=== PATIENT | male | born 1925 | race Caucasian/White ===

== ENCOUNTER 2016-04-27 12:34 | Emergency (ER) | payer OTHER ==
[~2016-04-27] VITALS: Ht 172.7 cm; Wt 72.6 kg
[~2016-04-27 12:34] MED LIST: C-500500 M1 PO; CALCIUM 500 +1 EAC5 PO; DAILY MULTIPLE1 EACH PO; ELIQUIS2.5 M1 PO; FERROUS SULFAT325 M3 PO; FOLIC ACID0.8 M1 PO; FOLIC ACID1 M1 PO; KEFLEX500 M1 PO; LASIX40 M1 PO; LOVASTATIN40 MG PO; OMEPRAZOLE20 MG PO; PRINIVIL10 M1 PO; SOTALOL HCL120 MG PO; WARFARIN SODIUM2 MG PO
--- NOTE | 2016-04-27 13:18 | ED MVC/FALL/TRAUMA COMPLAINT ---
History of Present Illness General Chief Complaint: Fall Stated Complaint: FALL X 2 ?DIZZINESS, LAC TO FOREHEAD Source: patient, family Exam Limitations: poor historian Allergies Coded Allergies: NO KNOWN ALLERGIES (09/05/10) Reconcile Medications Apixaban (Eliquis) 2.5 MG TABLET 1 TAB PO BID BLOOD THINNER (Reported) Ascorbic Acid (C-500) 500 MG TABLET 1 TAB PO QPM SUPPLEMENT (Reported) Calcium Carbonate/Vitamin D3 (Calcium 500 + D Tablet) 1 EACH TABLET 1 TAB PO BID VITAMIN SUPPORT (Reported) Ferrous Sulfate 325 MG (65 MG IRON) TABLET 1 TAB PO BID SUPPLEMENT (Reported) Folic Acid 0.8 MG CAPSULE 1 CAP PO DAILY SUPPLEMENT (Reported) Furosemide (Lasix) 40 MG TABLET 40 MG PO DAILY HEART FAILURE Lisinopril (Prinivil) 10 MG TABLET 1 TAB PO DAILY HIGH BLOOD PRESSURE ( Reported) Lovastatin 40 MG TABLET 1 TAB PO 1700 CHOLESTEROL (Reported) with food Multivitamin (Daily Multiple Vitamin) 1 EACH TABLET 1 TAB PO DAILY VITAMIN SUPPORT (Reported) Omeprazole 20 MG CAPSULE.DR 1 CAP PO DAILY GI (Reported) SOTALOL HCL (Sotalol) 120 MG TABLET 1 TAB PO BID HEART (Reported) Triage Note: PT TO ED WITH DAUGHTER S/P FALLING X 2 TODAY. PT NOTED WITH LAC TO RIGHT FOREHEAD AND ABRASION TO NECK. DENIES LOC. PT ON ELIQUIS FOR AFIB. RECENTLY STARTED ON LASIX FOR NEW DIAGNOSIS OF CHF. UNKNOWN LAST TETANUS SHOT. Triage Nurses Notes Reviewed? yes Onset: Abrupt Duration: hour(s):, constant, continues in ED Timing: recent history Severity: moderate, severe Injuries/Fall Location: face, chest Method of Injury: fall Loss of Consciousness: unsure HPI: 89-year-old male brought into emergency room for further evaluation after a mechanical fall that occurred in the bathroom. Apparently the patient was leaning over and then lost his balance and fell forward. Denies any chest pain shortness of breath dizziness prior to fall. Patient denies any pain currently. Patient reportedly had a headache earlier. Patient is on a eliquis for A. fib. No vomiting. Patient has not been sick recently with runny nose congestion and coughing. The only thing abnormal was that the patient did not take his medications yesterday morning as he usually does get he forgot. (JANKI REID) Vital Signs & Intake/Output Vital Signs & Intake/Output Vital Signs Date Time Temp Pulse Resp B/P Pulse O2 O2 Flow FiO2 Ox Delivery Rate 04/27 1540 97.1 70 18 100/62 97 Room Air 04/27 1352 Room Air Room Air 04/27 1242 96.6 94 20 107/67 97 Room Air Past History Travel History Traveled to [place] past 21 day No Medical History Any Pertinent Medical History? see below for history Neurological: Parkinson's disease EENT: allergies, blindness, hearing loss Cardiovascular: AFIB, CAD, hypertension, hyperlipidemia Gastrointestinal: GASTRIC CA 2004 Hepatic: NONE Renal: benign prost hyperplasia Musculoskeletal: osteoarthritis Psychiatric: NONE Endocrine: NONE Blood Disorders: anemia Cancer(s): GASTRIC CANCER STAGE 3 History of MRSA: No History of VRE: No History of CDIFF: No Pneumonia Vaccine: 02/28/16 Influenza Vaccine: 02/28/16 Surgical History Surgical History: TURP, GASTRIC CA REMOVAL Psychosocial History Who do you live with Spouse Services at Home None What is your primary language Citizen Of [place] Tobacco Use: Never used ETOH Use: denies use Illicit Drug Use: denies illicit drug use Family History Family History, If Any: SISTER FH: lung cancer BROTHER FH: prostate cancer Hx Contributory? No (JANKI REID) Review of Systems Review of Systems Constitutional: Reports: no symptoms. Eyes: Reports: no symptoms. Ears, Nose, Throat, Mouth: Reports: no symptoms. Respiratory: Reports: no symptoms. Cardiovascular: Reports: no symptoms. Gastrointestinal/Abdominal: Reports: no symptoms. Genitourinary: Reports: no symptoms. Musculoskeletal: Reports: see HPI. Skin: Reports: no symptoms. Neurological/Psychological: Reports: see HPI. All Other Systems: Reviewed and Negative (JANKI REID) Physical Exam Physical Exam General Appearance: alert, awake, mild distress Head: lacerations Eyes: Bilateral: normal appearance, PERRL, EOMI. Ears, Nose, Throat, Mouth: hearing grossly normal, moist mucous membrane Neck: normal inspection, supple, full range of motion Respiratory: normal breath sounds, no respiratory distress Cardiovascular: irregularly irregular Gastrointestinal: soft Back: normal inspection Extremities: normal range of motion Neurologic/Psych: awake, alert, oriented x 3, normal gait, normal mood/affect Skin: intact, normal color Core Measures ACS in differential dx? No Severe Sepsis Present: No Septic Shock Present: No (JANKI REID) Progress Differential Diagnosis: abd injury, C/T/L spine injury, ext injury, ICH, pelvis injury, pnemothorax, spinal cord injury Diagnostic Imaging: Viewed by Me: Radiology Read, CT Scan. Discussed w/RAD: Radiology Read, CT Scan. Radiology Impression: EXAM TYPE: CAT - CT HEAD WO IV CONTRAST EXAMINATION: CT HEAD WITHOUT CONTRAST CLINICAL INFORMATION: 89-year-old male with head trauma from fall. COMPARISON: CT of the head, 01/16/2016 TECHNIQUE: Contiguous axial imaging was performed from the skull base to vertex without intravenous administration of contrast. DLP: 529 mGy-cm. FINDINGS: There is atherosclerotic calcification of the cavernous carotid arteries. Again noted is patchy hypoattenuation of supratentorial white matter compatible with moderate microangiopathy. The anaya-white matter differentiation is maintained. There is no evidence of an acute major vascular territory infarction, intracranial hemorrhage, extra-axial fluid collection, focal mass effect or midline shift. The cerebral hemispheres are chronically atrophied, and there is associated symmetric prominence of the ventricles, sulci and cisterns. The calvarium is intact and the visualized paranasal sinuses, mastoid air cells and middle ear cavities are well aerated. The examined portions of the orbits, globes and temporomandibular joints are unremarkable. IMPRESSION: No acute intracranial pathology compared to 01/16/2016. DICTATED BY: KATERIN KIRBY MD DATE/TIME DICTATED:04/27/161320 BUCCARO:ZEINAB DATE/TIME TRANSCRIBED:1320, EXAM TYPE: RAD - XRY-PORTABLE CHEST XRAY EXAMINATION: XR PORTABLE CHEST CLINICAL INFORMATION: Fall COMPARISON: 03/26/2016 TECHNIQUE: Portable view of the chest was obtained. FINDINGS: No acute finding in the chest. Some chronic lung markings bases. No pneumothorax. No effusion. No obvious displaced fracture. Mediastinal contours are normal. No pneumothorax. IMPRESSION: No acute finding portable chest DICTATED BY: REAL GORDON MD DATE/TIME DICTATED:1317 BUCCARO:ZEINAB DATE/TIME TRANSCRIBED:04/27/161317 Initial ED EKG: rate (109), AFIB Comments: Patient seen by Dr. Byrd. Patient is at his normal baseline of function. Follow-up with primary care doctor. Return if any other concerns.nontoxic appearing and in NAD. (GUILLERMINA SANCHEZ,JANKI) Plan of Care: Orders Procedure Date/time Status Regular Diet 04/27 D Active URINALYSIS 04/27 1301 Complete TROPONIN LEVEL 04/27 1301 Complete COMPREHENSIVE METABOLIC PANEL 04/27 1301 Complete CBC WITHOUT DIFFERENTIAL 04/27 1301 Complete EKG 04/27 1248 Active Laboratory Tests 04/27/16 1509: Urine Color STRAW, Urine Clarity CLEAR, Urine pH 6.0, Ur Specific [place] 1.010, Urine Protein NEG, Urine Ketones NEG, Urine Nitrite NEG, Urine Bilirubin NEG, Urine Urobilinogen 0.2, Ur Leukocyte Esterase NEG, Ur Microscopic EXAM NOT REQUIRED, Urine Hemoglobin NEG, Urine Glucose NEG 04/27/16 1322: Anion Gap 16, Estimated GFR 44 L, BUN/Creatinine Ratio 34.0 H, Glucose 96, Calcium 9.7, Total Bilirubin 0.8, AST 27, ALT 34, Alkaline Phosphatase 62, Troponin I 0.01, Total Protein 7.1, Albumin 4.1, Globulin 3.0, Albumin/Globulin Ratio 1.4, CBC w Diff NO MAN DIFF REQ, RBC 3.95 L, MCV 95.2 H, MCH 32.3 H, RDW 13.2, MPV 9.7, Gran % 63.4, Lymphocytes % 24.8, Monocytes % 9.1, Eosinophils % 2.3, Basophils % 0.4, Absolute Granulocytes 5.0, Absolute Lymphocytes 2.0, Absolute Monocytes 0.7 H, Absolute Eosinophils 0.2, Absolute Basophils 0, PUBS MCHC 33.9 Departure Departure Disposition: STILL A PATIENT Condition: Stable Clinical Impression Primary Impression: Head injury Secondary Impressions: Facial laceration Referrals: Olvin GALVAN MD (PCP/Family) Additional Instructions: Follow-up with your primary care doctor. Return to the emergency room immediately if any other concerns worsening symptoms. Please go over all results of today's visit with your primary care doctor. Contact your primary care doctor to let them know you were here in the emergency room. There may be nonspecific findings which may not be related to your visit today here in the emergency room but may require further evaluation and chronic monitoring by your primary care doctor. If you had a laceration today the chance of foreign body always remains. You should follow-up with your primary care doctor for recheck in 3-5 days for a wound check. If you had an x-ray done there is a chance that a fracture could have been missed on initial read and you should follow-up with your primary care doctor for repeat x-rays if symptoms persist. If your blood pressure was elevated here in the emergency room please have rechecked by her primary care doctor within the next 48 hours by your primary care doctor. If you were prescribed a narcotic here in the emergency room or any type of controlled substances you're not allowed to drive while taking this medication or operate any type of heavy machinery. Narcotics can make you feel lightheaded dizziness nausea and can cause constipation. You may need to pickle pumper a stool softener. Thank you for choosing [facility] emergency room. Please return to the emergency room immediately if you have any other concerns worsening of symptoms. Departure Forms: Customer Survey General Discharge Information (JANKI REID) PA/ANODE WORKER Co-Sign Statement Statement: ED Attending supervision documentation- [x] I saw and evaluated the patient. I have also reviewed all the pertinent lab results and diagnostic results. I agree with the findings and the plan of care as documented in the PA's/ANODE WORKER's documentation. [] I have reviewed the ED Record and agree with the PA's/ANODE WORKER's documentation. [] Additions or exceptions (if any) to the PAs/ANODE WORKER's note and plan are summarized below: [] (BRICE DIAMOND,REAL Cummins) Procedures Laceration/Wound Repair Laceration/Wound Repair: Wound Location: face Wound's Depth, Shape: irregular Wound Length (cm): 2 Wound Explored: irrigated extensively Wound Repaired With: Dermabond Sterile Dressing Applied: Yes Tetanus Status: not up to date (JANKI REID)
--- NOTE | 2016-04-27 13:22 | RADIOLOGY REPORT ---
EXAMINATION: XR PORTABLE CHEST CLINICAL INFORMATION: Fall COMPARISON: 03/26/2016 TECHNIQUE: Portable view of the chest was obtained. FINDINGS: No acute finding in the chest. Some chronic lung markings bases. No pneumothorax. No effusion. No obvious displaced fracture. Mediastinal contours are normal. No pneumothorax. IMPRESSION: No acute finding portable chest
--- NOTE | 2016-04-27 13:29 | CT SCAN REPORT ---
EXAMINATION: CT HEAD WITHOUT CONTRAST CLINICAL INFORMATION: 89-year-old male with head trauma from fall. COMPARISON: CT of the head, 01/16/2016 TECHNIQUE: Contiguous axial imaging was performed from the skull base to vertex without intravenous administration of contrast. DLP: 529 mGy-cm. FINDINGS: There is atherosclerotic calcification of the cavernous carotid arteries. Again noted is patchy hypoattenuation of supratentorial white matter compatible with moderate microangiopathy. The anaya-white matter differentiation is maintained. There is no evidence of an acute major vascular territory infarction, intracranial hemorrhage, extra-axial fluid collection, focal mass effect or midline shift. The cerebral hemispheres are chronically atrophied, and there is associated symmetric prominence of the ventricles, sulci and cisterns. The calvarium is intact and the visualized paranasal sinuses, mastoid air cells and middle ear cavities are well aerated. The examined portions of the orbits, globes and temporomandibular joints are unremarkable. IMPRESSION: No acute intracranial pathology compared to 01/16/2016.
[2016-04-27 13:35] LABS: ABSOLUTE BASOPHIL COUNT 0 /CUMM (0.0-0.2); ABSOLUTE EOSINOPHIL COUNT 0.2 /CUMM (0.0-0.7); ABSOLUTE MONOCYTE COUNT 0.7 /CUMM (0.10-0.60); BASOPHIL % 0.4 % (0.0-2.0); EOSINOPHIL % 2.3 % (0-5); GRANULOCYTE % 63.4 % (42.2-75.2); HEMATOCRIT 37.6 % (42-52); MEAN CORPUSCULAR HGB 32.3 PG (27.0-31.0); MEAN CORPUSCULAR HGB CONC 33.9 G/DL (33.0-37.0); MEAN CORPUSCULAR VOLUME 95.2 FL (80.0-94.0); MEAN PLATELET VOLUME 9.7 FL (7.4-10.4); PLATELET COUNT 165 /CUMM (130-400); RBC DISTRIBUTION WIDTH 13.2 % (11.5-14.5); RED BLOOD CELL CT 3.95 /CUMM (4.70-6.10); WHITE BLOOD CELL COUNT 7.9 /CUMM (4.8-10.8)
[2016-04-27 15:40] VITALS: BP 100/62
[2016-08-31] MEDS ORDERED: METOPROLOL TART25 M1 PO (10:52)
[2016-08-31] MEDS ORDERED: SYNTHROID25 MCG PO (11:18)
== END 2016-04-27 15:42 ==
LOC: ERH 12:34
PROVIDERS: Physician Assistant Medical
DX: S09.90XA Unspecified injury of head, initial encounter (principal); S01.81XA Laceration without foreign body of other part of head, initial encounter; W19.XXXA Unspecified fall, initial encounter
CPT/HCPCS: 81003; 90471; 90714; 93005; 93010

== ENCOUNTER 2016-04-27 19:43 | Inpatient (IN) | payer OTHER ==
[~2016-04-27] VITALS: Ht 172.7 cm; Wt 70.8 kg
--- NOTE | 2016-04-27 20:12 | ED SYNCOPE COMPLAINT ---
History of Present Illness General Chief Complaint: General Adult Stated Complaint: WEAKNESS Source: patient, old records Exam Limitations: no limitations Vital Signs & Intake/Output Vital Signs & Intake/Output Vital Signs Date Time Temp Pulse Resp B/P Pulse O2 O2 Flow FiO2 Ox Delivery Rate 04/27 2008 98.3 106 16 112/70 98 Room Air Room Air Allergies Coded Allergies: NO KNOWN ALLERGIES (09/05/10) Reconcile Medications Apixaban (Eliquis) 2.5 MG TABLET 1 TAB PO BID BLOOD THINNER (Reported) Ascorbic Acid (C-500) 500 MG TABLET 1 TAB PO QPM SUPPLEMENT (Reported) Calcium Carbonate/Vitamin D3 (Calcium 500 + D Tablet) 1 EACH TABLET 1 TAB PO BID VITAMIN SUPPORT (Reported) Ferrous Sulfate 325 MG (65 MG IRON) TABLET 1 TAB PO BID SUPPLEMENT (Reported) Folic Acid 0.8 MG CAPSULE 1 CAP PO DAILY SUPPLEMENT (Reported) Furosemide (Lasix) 40 MG TABLET 40 MG PO DAILY HEART FAILURE Lisinopril (Prinivil) 10 MG TABLET 1 TAB PO DAILY HIGH BLOOD PRESSURE ( Reported) Lovastatin 40 MG TABLET 1 TAB PO 1700 CHOLESTEROL (Reported) with food Multivitamin (Daily Multiple Vitamin) 1 EACH TABLET 1 TAB PO DAILY VITAMIN SUPPORT (Reported) Omeprazole 20 MG CAPSULE.DR 1 CAP PO DAILY GI (Reported) SOTALOL HCL (Sotalol) 120 MG TABLET 1 TAB PO BID HEART (Reported) Triage Nurses Notes Reviewed? yes Timing: recent history Loss of Consciousness: no loss of consciousness HPI: 89-year-old male brought back in for further evaluation after having 2 near syncopal episodes. Patient was leaning forward and almost lost consciousness. Patient was not responding completely. There was no recent falls. Denies any chest pain shortness of breath. Patient has been increasingly unsteady. (JANKI REID) Past History Travel History Traveled to [place] past 21 day No Medical History Any Pertinent Medical History? see below for history Neurological: Parkinson's disease EENT: allergies, blindness, hearing loss Cardiovascular: AFIB, CAD, hypertension, hyperlipidemia Gastrointestinal: GASTRIC CA 2005 Hepatic: NONE Renal: benign prost hyperplasia Musculoskeletal: osteoarthritis Psychiatric: NONE Endocrine: NONE Blood Disorders: anemia Cancer(s): GASTRIC CANCER STAGE 3 History of MRSA: No History of VRE: No History of CDIFF: No Tetanus Vaccine: 04/27/16 Surgical History Surgical History: TURP, GASTRIC CA REMOVAL Psychosocial History Who do you live with Spouse Services at Home None What is your primary language [place] Family History Family History, If Any: SISTER FH: lung cancer BROTHER FH: prostate cancer Hx Contributory? No (JANKI REID) Review of Systems Review of Systems Constitutional: Reports: no symptoms. EENTM: Reports: no symptoms. Respiratory: Reports: no symptoms. Cardiovascular: Reports: see HPI. GI: Reports: no symptoms. Genitourinary: Reports: no symptoms. Musculoskeletal: Reports: no symptoms. Skin: Reports: no symptoms. Neurological/Psychological: Reports: see HPI. All Other Systems: Reviewed and Negative (JANKI REID) Physical Exam Physical Exam General Appearance: well developed/nourished, mild distress Head: atraumatic Eyes: Bilateral: normal appearance, EOMI. Ears, Nose, Throat: normal pharynx, normal ENT inspection Neck: normal inspection, full range of motion Respiratory: normal breath sounds, no respiratory distress Cardiovascular: irregularly irregular Back: normal inspection Extremities: normal inspection, normal range of motion Psychiatric: awake, alert, oriented x 3 Cranial Nerves: normal hearing, normal speech, PERRL Motor/Sensory: no motor/sensory deficits Skin: intact Core Measures ACS in differential dx? Yes CVA/TIA Diagnosis: No Severe Sepsis Present: No Septic Shock Present: No (JANKI REID) Progress Differential Diagnosis: AMI, aortic dissection, aortic valve, drug induced syncope, hyperventilation, orthostatic syncope, other valvular disease, pacemaker malfunction, pericardial tamponade, pulmonary embolus, seizure, sick sinus syndrome, subarachnoid hem., TIA/CVA, vasodepressor syncope, ventricular tach/fib Plan of Care: Orders Procedure Date/time Status Nothing by Mouth 04/28 B Active Patient Data 04/27 2134 Active Saline Lock 04/27 2124 Active Misc Message 04/27 2124 Active ED Holding Orders 04/27 2124 Active Vital Signs 04/27 2124 Active Code Status 04/[address] in observation 04/27 2123 Active Telemetry/Candle Maker 04/27 2006 Active TROPONIN LEVEL 04/27 2006 Active CBC WITHOUT DIFFERENTIAL 04/27 2006 Active BASIC METABOLIC PANEL 04/27 2006 Active EKG 04/27 2006 Active Initial ED EKG: rate (106), AFIB Prior EKG: unchanged (JANKI REID) Departure Departure Disposition: STILL A PATIENT Condition: Stable Clinical Impression Primary Impression: Near syncope Secondary Impressions: Unsteady gait Referrals: COLE DIAMOND,Olvin MULLINS (PCP/Family) Departure Forms: Customer Survey General Discharge Information Observation Note Spoke With: HOLLIS DIAMOND,VALERIA Physician Advisor Notified: KENN DIAMOND,YESENIA [facility] Place Patient In: Non-ED OBS Care Area Rationale for Observation: My rational for observation is as follows . Patient is unsteady. Patient unable to ambulate. Near-syncope. Patient will require cardiac telemetry. Cardiac consultation. Serial troponins. PT consultation. Patient was here earlier and discharged and failed outpatient treatment. (JANKI REID) PA/COMMERCIAL LITIGATION ATTORNEY Co-Sign Statement Statement: ED Attending supervision documentation- [x] I saw and evaluated the patient. I have also reviewed all the pertinent lab results and diagnostic results. I agree with the findings and the plan of care as documented in the PA's/COMMERCIAL LITIGATION ATTORNEY's documentation. pt signed out to me... pt to be placed in obs for syncope evaluation... discussed with dr. trent. [] I have reviewed the ED Record and agree with the PA's/COMMERCIAL LITIGATION ATTORNEY's documentation. [] Additions or exceptions (if any) to the PAs/COMMERCIAL LITIGATION ATTORNEY's note and plan are summarized below: [] (ALEJO DIAMOND,MARYSOL Birch)
--- NOTE | 2016-04-27 21:51 | History & Physical ---
[facility]Y [facility] 04/27/16 2058: General Information and HPI History of Present Illness: Mr. Boogie is a 89-year-old gentleman with a past medical history of atrial fibrillation on Eliquis, Parkinson's disease, hypertension, hyperlipidemia, gastric carcinoma status post chemotherapy and resection in 2004, osteoarthritis , hearing difficulty, and legal blindness who presents with complaints of near syncopy. Of note, patient was seen today in the morning for evaluation of what was believed to be a mechanical fall, after patient had tripped in the bathroom and hit his head. CT of the head obtain of the time was unremarkable, and was discharged home. He now presents in the evening time after what his daughter states to have been episodes of near fainting. Patient was standing up when he was noticed by his family members that he was bending forward and holding rails. His daughter who is an RN, decided to help him and make him sit down on a chair. Few minutes after, that patient stood up and immediately started bending forward in a motion of possible fall, his daughter held him and put him back on the chair. He was noted to be pale, and BP measured at that time was around 98 systolic. Patient was not reported to have had any confusion after the episode, no bowel or urinary incontinence, no seizure like activities, speech impairment, facial drooping or any focal neurological deficit. She also denies any chest pain, palpitation, vertigo, or tinnitus. Of note patient at baseline ambulates freely without any use of walking aid, he is physically physically active and swims every Saturday and Saturday. Allergies/Medications Allergies: Coded Allergies: NO KNOWN ALLERGIES (09/05/10) Home Med list Apixaban (Eliquis) 2.5 MG TABLET 1 TAB PO BID BLOOD THINNER (Reported) Ascorbic Acid (C-500) 500 MG TABLET 1 TAB PO QPM SUPPLEMENT (Reported) Calcium Carbonate/Vitamin D3 (Calcium 500 + D Tablet) 1 EACH TABLET 1 TAB PO BID VITAMIN SUPPORT (Reported) Ferrous Sulfate 325 MG (65 MG IRON) TABLET 1 TAB PO BID SUPPLEMENT (Reported) Folic Acid 0.8 MG CAPSULE 1 CAP PO DAILY SUPPLEMENT (Reported) Furosemide (Lasix) 40 MG TABLET 40 MG PO DAILY HEART FAILURE Lisinopril (Prinivil) 10 MG TABLET 1 TAB PO DAILY HIGH BLOOD PRESSURE ( Reported) Lovastatin 40 MG TABLET 1 TAB PO 1700 CHOLESTEROL (Reported) with food Multivitamin (Daily Multiple Vitamin) 1 EACH TABLET 1 TAB PO DAILY VITAMIN SUPPORT (Reported) Omeprazole 20 MG CAPSULE. 1 CAP PO DAILY GI (Reported) SOTALOL HCL (Sotalol) 120 MG TABLET 1 TAB PO BID HEART (Reported) Past History Travel History Traveled to [place] past 21 day No Medical History Neurological: Parkinson's disease EENT: allergies, blindness, hearing loss Cardiovascular: AFIB, CAD, hypertension, hyperlipidemia Gastrointestinal: GASTRIC CA 2005 Hepatic: NONE Renal: benign prost hyperplasia Musculoskeletal: osteoarthritis Psychiatric: NONE Endocrine: NONE Blood Disorders: anemia Cancer(s): GASTRIC CANCER STAGE 3 History of MRSA: No History of VRE: No History of CDIFF: No Tetanus Vaccine: 04/27/16 Surgical History Surgical History: TURP, GASTRIC CA REMOVAL Past Family/Social History Family History Relations & Conditions if any SISTER FH: lung cancer BROTHER FH: prostate cancer Psychosocial History Who Do You Live With? child Services at Home: None Primary Language: Japanese Functional Ability ADLs Independent: eating, toileting. Needs Assist: dressing, bathing. Ambulation: independent, sways and walks with the help of feeling the furniture at home, but never fell down, he requires assistance outside his home. IADLs Needs Assist: shopping, housework, finances, food prep, telephone, transportation, medication admin. Review of Systems Review of Systems Constitutional: Denies: chills, diaphoresis, fever, malaise. EENTM: Denies: blurred vision, visual changes, eye pain. Cardiovascular: Denies: chest pain, palpitations. Respiratory: Denies: cough, hemoptysis, orthopnea, short of breath. GI: Denies: bloating, constipation, diarrhea. Genitourinary: Denies: dysuria, frequency, hematuria, hesitation. Musculoskeletal: Denies: gout, joint pain, joint swelling. Skin: Denies: dryness, erythema, jaundice. Neurological/Psychological: Denies: cognitive dysfunction, confusion, depressed, dementia, emotional problems. Hematologic/Endocrine: Reports: no symptoms. Exam & Diagnostic Data Last 24 Hrs of Vital Signs/I&O Vital Signs Date Time Temp Pulse Resp B/P Pulse O2 O2 Flow FiO2 Ox Delivery Rate 04/27 2357 97.2 112 20 108/64 04/27 2155 97.1 98 20 90/52 100 Room Air 04/27 2008 98.3 106 16 112/70 98 Room Air Room Air Intake & Output 04/28 0800 04/28 0000 04/27 1600 Intake Total 0 Output Total Balance 0 Intake, Oral 0 Physical Exam General Appearance Alert, Oriented X3, Cooperative, No Acute Distress Skin No Significant Lesion HEENT PERRLA, Mucous Membr. moist/pink, laceration on right side of forehead. Neck Supple, No JVD, No thryomegaly, +2 Carotid Pulse wo Bruit Lymphatic Cervical nl Cardiovascular Regular Rate, Normal S1, Normal S2 Lungs Clear to Auscultation, Normal Air Movement Abdomen Normal Bowel Sounds, Soft, No Tenderness Neurological Normal Gait, Normal Speech, Strength at 5/5 X4 Ext, Normal Tone, Sensation Intact Extremities No Clubbing, No Cyanosis, No Edema, Normal Pulses, No Tenderness/ Swelling Vascular Normal Pulses Assessment/Plan Assessment: To 89-year-old male with a past medical history of A. fib, osteoarthritis, Parkinson's disease, hypertension, HFPref, presents for evaluation of episodes of near syncope. Impression * Pre-Syncope. Possibly secondary to orthostatic hypotension. seizures, neurological, cardiac etiology less likely. * GABBY. Possibly prerenal from hypovolemia. * Anion gap metabolic acidosis. Possible of renal etiology. * History of A. fib Plan * Will admit to telemetry close cardiac monitoring * Will begin hydration at 100 mls per hour * Echo in the morning * Will hold off furosemide * Will continue sotalol * Orthostatics * PT consult As Ranked By This Provider Problem List: 1. Pre-syncope 2. GABBY (acute kidney injury) Core Measures/Miscellaneous Acute Coronary Syndrome ACS Diagnosis: No Cerebrovascular Accident CVA/TIA Diagnosis: No Congestive Heart Failure CHF Diagnosis: No Venous Thromboembolism VTE Risk Factors: Acute medical illness, Age > 40 VTE Prophylaxis Ordered Inpt: Pharm- Eliquis [facility] prophylaxis d/t: No contraindications No VTE Pharm Prophylaxis d/t: No contraindications VTE Diagnosis: No VTE Type: NONE VTE Confirmed by (Test): NONE Severe Sepsis Severe Sepsis Present: No Septic Shock Septic Shock Present: No Miscellaneous Documentation Attending Case Discussed With: VALERIA SHAFER MD Primary Care Physician: Olvin GALVAN MD Patient sees these Specialists credit control officer Level of Patient Care: Telemetry NICK CORREIA MD 04/27/16 2243: Resident Review Statement Resident Statement: examined this patient, discussed with manufacturing engineering intern, agreed with manufacturing engineering intern, discussed with family, reviewed EMR data (avail), discussed with nursing , discussed with case mgmt, reviewed images, amended to note Other Findings: Rajeev is an 89-year-old man with a medical history of coronary artery disease atrial fibrillation on anticoagulation heart failure with preserved ejection fraction hypertension pericardial effusion recent history of fall (negative CAT scan), recent admission to [facility] in March 2016 with acute congestive heart failure, gastric cancer status post chemotherapy and resection 2004, Parkinson's disease, osteoarthritis, subclinical hypothyroidism, acute kidney injury secondary to loop diuretics, BPH, anemia (? Iron deficiency) hard of hearing and legally blind now presents with 2 episodes of near syncope, increasing gait unsteadiness. He is afebrile, heart rate is 98-106 bpm, blood pressure was initially 90/52, however upon recheck was 112/70. He is 100% on room air. CBC is unremarkable. Creatinine is elevated at 1.8, at baseline he is normal. Anion gap of 18 noted. First set of troponin and EKG negative. Echocardiogram from March 2016 demonstrates an ejection fraction of 70%. CAT scan of the head did not show any acute intracranial pathology. Suspect he has been overdiuresed with furosemide leading to GABBY, and episodes of near syncope secondary to volume depletion. Laceration to head w/o IC bleed. Stable Afib with CHADSVASC 4. - Problems - Pre-syncope Dehydration Pre-renal acute renal failure Head injury with laceration Afib - Plan - Telemetry Check orthostat VS Urinalysis Urine lytes/FeNa NS 1L @ 100cc/hr x 1 Repeat BMP in AM Hold lasix, JEFFREY-i Continue sotalol,statin Neurochecks q4 PT/OT eval DVT ppx - on eliquis FULL HOLLIS,AARTEE 04/28/16 0632: Attending MD Review Statement Attending Statement Attending MD Statement: examined this patient, discuss w/resident/PA/BACK SEWER, agreed w/resident/PA/BACK SEWER, discussed with family, reviewed EMR data (avail), reviewed images, amended to note Attending Assessment/Plan: CC: Presyncope and fall PMH Hx: CAD, A. fib on Eliquis, HFp EF, HTN, history of pericardial effusion, history of falls January 2016, history of gastric cancer status post resection and chemotherapy, BPH Patient was earlier in the ER today for mechanical fall, patient was discharged home. Patient had 2 episodes of presyncope, first daughter saw him slumped and confused, second episode he almost passed out. He appeared more confused in these 2 episodes so daughter brought him back. Patient was recently admitted and was treated for newly diagnosed heart failure currently on Lasix. Vitals: Afebrile, pulse 106, RR 20, blood pressure 112/70, saturating well on room air. On examination: A O 3, anxious, no distress. Hard of hearing. Mucosa dry, no JVD, no lymphadenopathy, neck supple CVS: S1-S2, RRR. RS: Clear to auscultate. Abdomen: Soft, NT, ND, bowel sounds present. No focal neurological deficit. No dependent edema. He has some laceration on forehead, chest, uninfected. Labs: Hemoglobin 12.4, bicarbonate 20, anion gap 18, creatinine 1.8, troponin 0.02 Chest x-ray done on April 27 shows no acute changes. CT head done on April 27 shows no evidence of intracranial pathology. A and P #1 presyncope: Patient is admitted in observation telemetry for presyncopal workup, which appears to be more secondary to volume contraction at this time. Continue telemetry monitoring, orthostatic vitals in a.m., gentle hydration, check UA, hold Lasix, hold JEFFREY inhibitor, OT PT evaluation, cardiology consult, 2-D echo if suggested by cardiology. Recent echocardiogram doesn't show any evidence of valvular disease, but ejection fraction 70%. Patient may benefit from MRI and neurologic consult for gait instability. #2 acute kidney injury: Patient's creatinine gradually increased from 1.2-1.8. Probably secondary to volume contraction. Continue gentle hydration. #3 anion gap acidosis: Probably secondary to acute kidney injury, no possible source of infection at this point. Check lactic acid is not improving, on repeat labs. Continue gentle hydration. Repeat BEP and LFTs in a.m. #4 continue anticoagulation and sotalol. Adequate pain control.
[2016-04-27 21:55] LABS: ABSOLUTE BASOPHIL COUNT 0 /CUMM (0.0-0.2); ABSOLUTE EOSINOPHIL COUNT 0.1 /CUMM (0.0-0.7); ABSOLUTE GRANULOCYTE CT 6.9 /CUMM (1.4-6.5); ABSOLUTE LYMPH COUNT 1.9 /CUMM (1.2-3.4); ABSOLUTE MONOCYTE COUNT 0.7 /CUMM (0.10-0.60); BASOPHIL % 0.5 % (0.0-2.0); EOSINOPHIL % 0.8 % (0-5); GRANULOCYTE % 71.4 % (42.2-75.2); HEMATOCRIT 36.6 % (42-52); MEAN CORPUSCULAR HGB 32.5 PG (27.0-31.0); MEAN CORPUSCULAR VOLUME 95.5 FL (80.0-94.0); MEAN PLATELET VOLUME 9.8 FL (7.4-10.4); PLATELET COUNT 156 /CUMM (130-400); RBC DISTRIBUTION WIDTH 13.5 % (11.5-14.5); RED BLOOD CELL CT 3.83 /CUMM (4.70-6.10); WHITE BLOOD CELL COUNT 9.6 /CUMM (4.8-10.8)
[2016-04-27 23:57] VITALS: BP 108/64
--- NOTE | 2016-04-28 06:41 | PN- Housestaff ---
BREN DIAMOND,NICK 04/28/16 0640: Subjective Follow-up For: Presyncope GABBY AG Acidosis Subjective: Doing well. No overnight events. No complaints this am. Review of Systems Constitutional: Denies: see HPI. Objective Last 24 Hrs of Vital Signs/I&O Vital Signs Date Time Temp Pulse Resp B/P Pulse O2 O2 Flow FiO2 Ox Delivery Rate 04/27 2357 97.2 112 20 108/64 98 Room Air 04/275 97.1 98 20 90/52 100 Room Air 04/27 2008 98.3 106 16 112/70 98 Room Air Room Air Intake & Output 04/28 0800 04/28 0000 04/27 1600 Intake Total 0 Output Total Balance 0 Intake, Oral 0 Patient 156 lb Weight Physical Exam General Appearance: Alert, Oriented X3, Cooperative Other Physical Findings: Skin No Significant Lesion HEENT PERRLA, Mucous Membr. moist/pink, laceration on right side of forehead. Neck Supple, No JVD, No thryomegaly, +2 Carotid Pulse wo Bruit Lymphatic Cervical nl Cardiovascular Regular Rate, Normal S1, Normal S2 Lungs Clear to Auscultation, Normal Air Movement Abdomen Normal Bowel Sounds, Soft, No Tenderness Neurological Normal Gait, Normal Speech, Strength at 5/5 X4 Ext, Normal Tone, Sensation Intact Extremities No Clubbing, No Cyanosis, No Edema, Normal Pulses, No Tenderness/ Swelling Vascular Normal Pulses Current Medications: Current Medications Sig/Maximiliano Start time Last Medication Dose Route Stop Time Status Admin Acetaminophen 650 MG Q6P PRN 04/270 AC PO Acetaminophen/ 1 TAB Q6P PRN 04/27 2229 AC Hydrocodone Bitart PO Apixaban 2.5 MG BID 04/28 1000 AC PO Atorvastatin Calcium 10 MG 1700 04/28 1700 AC PO Diphenhydramine HCl 25 MG Q6P PRN 04/27 2230 AC PO Docusate Sodium 100 MG BID 04/28 1000 AC PO Ferrous Sulfate 325 MG BID 04/28 1000 AC PO Folic Acid 1 MG DAILY 04/28 1000 AC PO Hydromorphone HCl 0.5 MG Q4P PRN 04/27 2230 AC IV Omeprazole 20 MG DAILY AC 04/28 0700 AC 04/28 PO 0620 Polyethylene Glycol 17 GM AT BEDTIME 04/28 2200 AC PO Prochlorperazine 10 MG Q6P PRN 04/27 2230 AC IV Senna/Docusate Sodium 1 TAB AT BEDTIME 04/28 2200 AC PO Sodium Chloride 1,000 ML Q10H 04/27 2245 AC 04/27 IV 04/28 0844 2312 Sotalol HCl 120 MG BID 04/28 1000 AC PO Last 24 Hrs of Lab/Lb Results Last 24 Hrs of Labs/Mics: Laboratory Tests 04/27/163: Anion Gap 18 H, Estimated GFR 36 L, BUN/Creatinine Ratio 35.0 H, Glucose 124 H, Calcium 9.6, Troponin I 0.02, CBC w Diff NO MAN DIFF REQ, RBC 3.83 L, MCV 95.5 H, MCH 32.5 H, RDW 13.5, MPV 9.8, Gran % 71.4, Lymphocytes % 20.2 L, Monocytes % 7.1, Eosinophils % 0.8, Basophils % 0.5, Absolute Granulocytes 6.9 H, Absolute Lymphocytes 1.9, Absolute Monocytes 0.7 H, Absolute Eosinophils 0.1 , Absolute Basophils 0, PUBS MCHC 34.0 Assessment/Plan Assessment: Rajeev is an 89-year-old man with a medical history of coronary artery disease atrial fibrillation on anticoagulation heart failure with preserved ejection fraction hypertension pericardial effusion recent history of fall (negative CAT scan), recent admission to [facility] in March 2016 with acute congestive heart failure, gastric cancer status post chemotherapy and resection 2004, Parkinson's disease, osteoarthritis, subclinical hypothyroidism, acute kidney injury secondary to loop diuretics, BPH, anemia (? Iron deficiency) hard of hearing and legally blind now presents with 2 episodes of near syncope, increasing gait unsteadiness. Suspect he has been overdiuresed with furosemide leading to GABBY, and episodes of near syncope secondary to volume depletion. Laceration to head w/o IC bleed. Stable Afib with CHADSVASC 4. - Problems - Pre-syncope Dehydration Pre-renal acute renal failure AG acidosis Head injury with laceration Afib - Plan - Await Labs Urinalysis Urine lytes/FeNa Hold lasix, JEFFREY-i Continue sotalol,statin Neurochecks q4 PT/OT eval DC pending above DVT ppx - on eliquis FULL Problem List: 1. Pre-syncope Pain Ratin Pain Location: /A Pain Goal: Pain 7 or less Pain Plan: N/A Tomorrow's Labs & Rationales: N/A RAJAT DIAMOND,JACQUELINE 04/28/16 1618: Attending MD Review Statement Attending Statement Attending MD Statement: examined this patient, discuss w/resident/PA/MAINTENANCE SERVICE TECHNICIAN, agreed w/resident/PA/MAINTENANCE SERVICE TECHNICIAN, reviewed EMR data (avail) Attending Assessment/Plan: 89M PMH CADCarol. fib on Eliquis, HFp EF, HTN, history of pericardial effusion, history of falls January 2016, history of gastric cancer status post resection and chemotherapy, BPH admitted for multiple episodes of pre-syncope, found to be hypotensive on admission. Recently started on Lasix, appears dehydrated with GABBY, no infectious signs. Remains hypotensive despite 500mL normal saline bolus , 80/46. Plan - Give additional 500mL normal saline bolus, if still hypotensive, give another 500 mL - Continue normal saline at 75mL/hr - Monitor renal function - Obtain cardiology consult - Monitor telemetry - Check morning cortisol level - Check TSH - Continue home medications, avoid anti-hypertensives - DVT PPx
[2016-04-28 08:37] VITALS: BP 86/48
[2016-04-28 09:10] VITALS: BP 98/50
[2016-04-28 12:00] VITALS: BP 80/42
[2016-04-28 12:57] VITALS: BP 84/40
[2016-04-28 16:12] VITALS: BP 108/58
--- NOTE | 2016-04-28 18:16 | Cons- Cardiology ---
General Information and HPI Consulting Request Date of Consult: 04/28/16 Requested By: VALERIA SHAFER MD Reason for Consult: Suspected syncopal episode. Source of Information: patient, family, old records Exam Limitations: dementia History of Present Illness: Mr. Rajeev Boogie is an 89-year-old male with a history of hypertension, dyslipidemia, paroxysmal atrial fibrillation on antiarrhythmic ( sotalol) and anticoagulation (apixaban) therapy, who presented to the ED twice yesterday first following an unwitnessed suspected mechanical fall for which she was discharged to home and who returned following a witnessed near syncopal episode. He is a poor historian, but denies any recent chest discomfort, palpitations, shortness of breath, lower extremity edema, paroxysmal nocturnal dyspnea, orthopnea, etc. He was last hospitalized at (03/23-03/28/2016) for complaints of shortness of breath felt secondary to heart failure with preserved systolic function that responded well to standard diuretic therapy. There was no evidence of myocardial necrosis by serial cardiac enzyme determinations. At that time, he had furosemide 40 mg daily added to his medical regimen and this has been continued. His daughter also has been instrumental in having both of her parents have a better diet with less sodium content calories. His last echocardiogram was performed during his last hospitalization here (02/2016) and revealed normal left ventricular size with mild to moderate left ventricular hypertrophy, normal systolic function with no obvious regional wall motion abnormalitie and an ejection fraction estimated at 70%, normal right ventricular size and function, normal atrial size, normal-appearing mitral, aortic, tricuspid, pulmonic valves, a small pericardial effusion, and a normal size aortic root. The Doppler portion of the study revealed mild mitral, mild aortic, mild tricuspid, trace pulmonic regurgitation, normal estimated PA systolic pressure, and normal left ventricular inflow pattern for age. Allergies/Medications Allergies: Coded Allergies: NO KNOWN ALLERGIES (09/05/10) Home Med List: Apixaban (Eliquis) 2.5 MG TABLET 1 TAB PO BID BLOOD THINNER (Reported) Ascorbic Acid (C-500) 500 MG TABLET 1 TAB PO QPM SUPPLEMENT (Reported) Calcium Carbonate/Vitamin D3 (Calcium 500 + D Tablet) 1 EACH TABLET 1 TAB PO BID VITAMIN SUPPORT (Reported) Ferrous Sulfate 325 MG (65 MG IRON) TABLET 1 TAB PO BID SUPPLEMENT (Reported) Folic Acid 0.8 MG CAPSULE 1 CAP PO DAILY SUPPLEMENT (Reported) Furosemide (Lasix) 40 MG TABLET 40 MG PO DAILY HEART FAILURE Lisinopril (Prinivil) 10 MG TABLET 1 TAB PO DAILY HIGH BLOOD PRESSURE ( Reported) Lovastatin 40 MG TABLET 1 TAB PO 1700 CHOLESTEROL (Reported) with food Multivitamin (Daily Multiple Vitamin) 1 EACH TABLET 1 TAB PO DAILY VITAMIN SUPPORT (Reported) Omeprazole 20 MG CAPSULE.DR 1 CAP PO DAILY GI (Reported) SOTALOL HCL (Sotalol) 120 MG TABLET 1 TAB PO BID HEART (Reported) Review of Systems Review of Systems: A 14 point system review was obtained and was noncontributory, other than for the fact that the patient wears glasses. Past History Travel History Traveled to [place] past 21 day No Medical History Blood Transfusion Hx: No Neurological: Parkinson's disease EENT: allergies, blindness, hearing loss Cardiovascular: AFIB, CAD, hypertension, hyperlipidemia Gastrointestinal: GASTRIC CA 2005 Hepatic: NONE Renal: benign prost hyperplasia Musculoskeletal: osteoarthritis Psychiatric: NONE Endocrine: NONE Blood Disorders: anemia Cancer(s): GASTRIC CANCER STAGE 3 GLASS WORKER/Reproductive: NONE Surgical History Surgical History: TURP, GASTRIC CA REMOVAL Family History Relations & Conditions If Any: SISTER FH: lung cancer BROTHER FH: prostate cancer Psychosocial History Who Do You Live With? child Services at Home: None Primary Language: Andorran Smoking Status: Unknown If Ever Smoked Functional Ability ADLs Independent: eating, toileting. Needs Assist: dressing, bathing. Ambulation: independent, sways and walks with the help of feeling the furniture at home, but never fell down, he requires assistance outside his home. IADLs Needs Assist: shopping, housework, finances, food prep, telephone, transportation, medication admin. Exam & Diagnostic Data Vital Signs and I&O Vital Signs Date Time Temp Pulse Resp B/P Pulse O2 O2 Flow FiO2 Ox Delivery Rate 04/28 1612 99.6 81 20 108/58 94 Room Air 04/28 1257 76 84/40 04/28 1200 74 80/42 04/28 0910 74 98/50 04/28 0837 97.7 93 20 86/48 96 Room Air 04/27 2357 97.2 112 20 108/64 98 Room Air 04/27 2155 97.1 98 20 90/52 100 Room Air 04/27 2008 98.3 106 16 112/70 98 Room Air Room Air Intake & Output 04/28 1600 04/28 0800 04/28 0000 04/27 1600 04/27 0800 04/27 0000 Intake Total 1320 0 Output Total 125 Balance 1195 0 Intake, IV 500 Intake, Oral 820 0 Number 1 Bowel Movements Output, Urine 125 Patient 156 lb Weight Physical Exam: Well-developed, well-nourished elderly male in no acute distress with nasal oxygen in place. Vital signs: See above. HEENT: Normocephalic, contusion right side of forehead, EOMI, slightly dry mucous membranes. Neck: No JVD, no bruits. Lungs: Clear to auscultation bilaterally. Heart: S1, S2 with soft (grade 1/6) systolic murmur. PMI fifth ICS at MCL. No gallop or rub appreciated. Abdomen: Soft, nontender, positive bowel sounds. Extremities: No edema. Labs/Lb Results: Laboratory Tests 04/28 04/28 04/27 1510 0850 2309 Chemistry Sodium (137 - 145 mmol/L) 142 Potassium (3.5 - 5.1 mmol/L) 4.2 Chloride (98 - 107 mmol/L) 105 Carbon Dioxide (22 - 30 mmol/L) 23 Anion Gap (5 - 16) 14 BUN (9 - 20 mg/dL) 57 H Creatinine (0.7 - 1.2 mg/dL) 1.7 H Estimated GFR (>60 ml/min) 38 L BUN/Creatinine Ratio (7 - 25 %) 33.5 H Magnesium (1.6 - 2.3 mg/dL) 2.1 Urines Urine Color Cancelled Urine Clarity Cancelled Urine pH Cancelled Ur Specific [place] Cancelled Urine Protein Cancelled Urine Ketones Cancelled Urine Nitrite Cancelled Urine Bilirubin Cancelled Urine Urobilinogen Cancelled Ur Leukocyte Esterase Cancelled Ur Microscopic Cancelled Urine Hemoglobin Cancelled Ur Random Creatinine (mg/dL) 124.2 Ur Random Sodium (30 - 90 mmol/L) 15 L Ur Random Potassium (mmol/L) 41.6 Fraction Sodium Excret (<1% %) 0.1 Urine Glucose Cancelled 04/273 Chemistry Sodium (137 - 145 mmol/L) 139 Potassium (3.5 - 5.1 mmol/L) 4.9 Chloride (98 - 107 mmol/L) 100 Carbon Dioxide (22 - 30 mmol/L) 20 L Anion Gap (5 - 16) 18 H BUN (9 - 20 mg/dL) 63 H Creatinine (0.7 - 1.2 mg/dL) 1.8 H Estimated GFR (>60 ml/min) 36 L BUN/Creatinine Ratio (7 - 25 %) 35.0 H Glucose (65 - 99 mg/dL) 124 H Calcium (8.4 - 10.2 mg/dL) 9.6 Troponin I (<0.11 ng/ml) 0.02 Hematology CBC w Diff NO MAN DIFF REQ WBC (4.8 - 10.8 /CUMM) 9.6 RBC (4.70 - 6.10 /CUMM) 3.83 L Hgb (14.0 - 18.0 G/DL) 12.4 L Hct (42 - 52 %) 36.6 L MCV (80.0 - 94.0 FL) 95.5 H MCH (27.0 - 31.0 PG) 32.5 H RDW (11.5 - 14.5 %) 13.5 Plt Count (130 - 400 /CUMM) 156 MPV (7.4 - 10.4 FL) 9.8 Gran % (42.2 - 75.2 %) 71.4 Lymphocytes % (20.5 - 51.1 %) 20.2 L Monocytes % (1.7 - 9.3 %) 7.1 Eosinophils % (0 - 5 %) 0.8 Basophils % (0.0 - 2.0 %) 0.5 Absolute Granulocytes (1.4 - 6.5 /CUMM) 6.9 H Absolute Lymphocytes (1.2 - 3.4 /CUMM) 1.9 Absolute Monocytes (0.10 - 0.60 /CUMM) 0.7 H Absolute Eosinophils (0.0 - 0.7 /CUMM) 0.1 Absolute Basophils (0.0 - 0.2 /CUMM) 0 PUBS MCHC (33.0 - 37.0 G/DL) 34.0 Diagnostic Data EKG Results (04/27/2016) atrial fibrillation with a rapid ventricular response low frontal lead voltage, and borderline prolonged QT interval CXR Results (04/27/2016) no acute pulmonary process. Other Results Head CT (04/27/2016) no acute intracranial pathology. Assessment/Plan Assessment/Plan Mr. Boogie is an elderly male with a history of hypertension, dyslipidemia, paroxysmal atrial fibrillation on antiarrhythmic (sotalol) and anticoagulation (apixaban) therapy, who was recently hospitalized here (03/23-) for heart failure with preserved left ventricular systolic function that responded well to diuretic therapy which has been continued on an outpatient basis who presented to the ED twice yesterday, first following an unwitnessed suspected mechanical fall and next for an episode of witnessed near syncope with documented hypotension, intermittent rapid ventricular response rates to his atrial fibrillation and laboratory evidence of intravascular depletion likely secondary to diuretic therapy and an improved diet. Recommendations: * Telemetry admission, follow-up troponins, follow-up electrocardiogram. * Hold diuretic therapy for the short-term. * Hold JEFFREY inhibitor therapy for the short-term. * Gentle IV hydration. * Follow-up BUN/creatinine in the a.m. * Consider nephrology consultation if his BUN/creatinine do not significantly and promptly improve with IV hydration. * Discuss with his attending wood car builder (Milad Chowdary M.D., PhD) whether or not he wants to continue the patient on sotalol as it does not appear to be maintaining sinus rhythm. * Continue anticoagulation with the factor X a inhibitor apixaban (Eliquis). * DVT prophylaxis being addressed by the apixaban. Further recommendations will follow, Thank you. Consult Acknowledgment - Thank you for your consult request.
[2016-04-28 20:22] VITALS: BP 110/58
[2016-04-29 01:00] VITALS: BP 96/48
--- NOTE | 2016-04-29 07:50 | PN- Housestaff ---
See Addendum Subjective Follow-up For: Presyncope GABBY AG Acidosis Tele-Events Since Last Visit: Sinus Bradycardia A Fib Converted at 22.25 Rate: 101--> 52 Subjective: Mr Boogie was seen and examined this morning. Resting in bed. Reports no acute issues overnight. He states he is tolerating intake oral intake well. Denies any lightheadedness or vision changes. Patient expresses eagerness to go home. He is alert and oriented 2. No oriented to time. Patient denies any fever, chills, nausea, vomiting. Review of Systems Constitutional: Reports: see HPI. Denies: chills, diaphoresis, fever. Objective Last 24 Hrs of Vital Signs/I&O Vital Signs Date Time Temp Pulse Resp B/P Pulse O2 O2 Flow FiO2 Ox Delivery Rate 04/29 0811 97.7 69 20 94/58 97 Room Air 04/29 0100 98.4 67 20 96/48 97 Room Air 04/29 0000 95 Room Air 04/28 2022 83 110/58 04/28 1612 99.6 81 20 108/58 94 Room Air 04/28 1600 94 Room Air 04/28 1257 76 84/40 04/28 1200 74 80/42 Intake & Output 04/29 1600 04/29 0800 04/29 0000 Intake Total 100 1190 Output Total 300 Balance -200 1190 Intake, IV 650 Intake, Oral 100 540 Number 0 Bowel Movements Output, Urine 300 Patient 70.76 kg Weight Physical Exam General Appearance: Alert, Oriented X3, Cooperative Cardiovascular: Normal S1, Normal S2 Lungs: Clear to Auscultation Abdomen: Normal Bowel Sounds, Soft, No Tenderness Neurological: Normal Speech, Hard of Hearing Extremities: No Edema Current Medications: Current Medications Sig/Maximiliano Start time Last Medication Dose Route Stop Time Status Admin Acetaminophen 650 MG Q6P PRN 04/27 2230 AC PO Acetaminophen/ 1 TAB Q6P PRN 04/27 2230 AC Hydrocodone Bitart PO Apixaban 2.5 MG BID 04/28 1000 AC 04/29 PO 0947 Atorvastatin Calcium 10 MG 1700 04/28 1700 AC 04/28 PO 2016 Diphenhydramine HCl 25 MG .STK-MED ONE 04/29 0012 DC PO 04/29 0013 Diphenhydramine HCl 25 MG Q6P PRN 04/27 2230 AC 01/15 PO 0016 Docusate Sodium 100 MG BID 04/28 1000 AC 04/29 PO 0947 Ferrous Sulfate 325 MG BID 04/28 1000 AC 04/29 PO 0947 Folic Acid 1 MG DAILY 04/28 1000 AC 04/29 PO 0947 Hydromorphone HCl 0.5 MG Q4P PRN 04/27 2230 AC IV Omeprazole 20 MG DAILY AC 04/28 0700 AC 04/29 PO 0613 Polyethylene Glycol 17 GM AT BEDTIME 04/28 2200 AC PO Prochlorperazine 10 MG Q6P PRN 04/27 2230 AC IV Senna/Docusate Sodium 1 TAB AT BEDTIME 04/28 2200 AC PO Sodium Chloride 1,000 ML Q13H 04/28 1945 DC 04/28 IV 04/29 0844 2014 Sodium Chloride 500 ML BOLUS ONE 04/28 1415 DC 04/28 IV 04/28 1514 1453 Sotalol HCl 120 MG BID 04/28 1000 AC 04/28 PO 2016 Last 24 Hrs of Lab/Lb Results Last 24 Hrs of Labs/Mics: Laboratory Tests 04/29/16 0755: Anion Gap 13, Estimated GFR 44 L, BUN/Creatinine Ratio 28.7 H, TSH 8.340 H, Cortisol AM Sample 8.0 04/28/16 1510: Ur Random Creatinine 124.2, Ur Random Sodium 15 L, Ur Random Potassium 41.6, Fraction Sodium Excret 0.1 Microbiology 04/28 1808 BLOOD: Blood Culture - RECD 04/28 1805 BLOOD: Blood Culture - RECD 04/28 1510 URINE ROUT: Urine Culture - RECD Assessment/Plan Assessment: Rajeev is an 89-year-old man with a medical history of coronary artery disease atrial fibrillation on anticoagulation heart failure with preserved ejection fraction hypertension pericardial effusion recent history of fall (negative CAT scan), recent admission to [facility] in March 2016 with acute congestive heart failure, gastric cancer status post chemotherapy and resection 2004, Parkinson's disease, osteoarthritis, subclinical hypothyroidism, acute kidney injury secondary to loop diuretics, BPH, anemia (? Iron deficiency) hard of hearing and legally blind now presents with 2 episodes of near syncope, increasing gait unsteadiness. Suspect he has been overdiuresed with furosemide leading to GABYB, and episodes of near syncope secondary to volume depletion. Laceration to head w/o IC bleed. Stable Afib with CHADSVASC 4. - Problems - Pre-syncope Dehydration Pre-renal acute renal failure AG acidosis Head injury with laceration Afib - Plan - Await Continue patient on IV fluids normal saline running at 75 mL per hour. Continue sotalol, need to confirm with Dr. Chowdary regarding sotalol long-term. Can be confirmed on 04/30/2016. Labs Urinalysis Urine lytes/FeNa Hold lasix, JEFFREY-i Neurochecks q4 PT/OT eval DC pending above DVT ppx - on eliquis FULL Problem List: 1. Atrial fibrillation 2. Dyslipidemia 3. Neoplasm of stomach 4. Pneumonia 5. Hypercholesteremia 6. Full code status 7. Chest pain 8. Afib 9. Near syncope 10. Anemia 11. History of atrial fibrillation 12. Abscess of abdominal wall 13. Cellulitis 14. CHF (congestive heart failure) 15. Head injury 16. Facial laceration 17. Unsteady gait 18. Pre-syncope 19. GABBY (acute kidney injury) Pain Ratin Pain Location: No Pain Pain Goal: Remain pain free Pain Plan: Tylenol PRN Tomorrow's Labs & Rationales: Bep: Monitor Cr and BUN
[2016-04-29 08:11] VITALS: BP 94/58
[2016-04-29 12:10] VITALS: BP 106/58
[2016-04-29 15:50] VITALS: BP 92/48
[2016-04-29 20:29] VITALS: BP 148/58
[2016-04-29 22:59] VITALS: BP 110/60
--- NOTE | 2016-04-30 06:32 | PN- Housestaff ---
LYLA DIAMOND,[facility] 04/30/16 0632: Subjective Follow-up For: Presyncope GABBY AG Acidosis Tele-Events Since Last Visit: Sinus Rhythm 1 deg Block 62-88 No OE Subjective: Mr Boogie was seen and examined this morning resting comfortably in bed. Reports no issues overnight. Patient states that he is comfortable. He denies any lightheadedness, vision changes, gait imbalance, changes in mentation. Patient denies any fever, chills, nausea, vomiting. He continues to be on IV normal saline running at 75 mL per hour. Review of Systems Constitutional: Reports: see HPI. Denies: chills, diaphoresis, fever. Objective Last 24 Hrs of Vital Signs/I&O Vital Signs Date Time Temp Pulse Resp B/P Pulse O2 O2 Flow FiO2 Ox Delivery Rate 04/30 1038 66 120/54 04/30 0815 97.8 62 18 130/58 97 Room Air 04/29 2259 97.6 67 18 110/60 98 Room Air 04/29 2029 64 148/58 04/29 1600 95 Room Air 04/29 1550 98.1 65 18 92/48 95 Room Air Intake & Output 04/30 1600 04/30 0800 04/30 0000 Intake Total 575 1120 Output Total Balance 575 1120 Intake, IV 525 600 Intake, Oral 50 520 Physical Exam General Appearance: Alert, Oriented X3, Cooperative Skin: No Significant Lesion Cardiovascular: Normal S1, Normal S2 Lungs: Clear to Auscultation Abdomen: Normal Bowel Sounds, Soft, No Tenderness Neurological: Normal Speech, Strength at 5/5 X4 Ext Extremities: No Edema Current Medications: Current Medications Sig/Maximiliano Start time Last Medication Dose Route Stop Time Status Admin Acetaminophen 650 MG .STK-MED ONE 04/29 1627 DC PO 04/29 1628 Acetaminophen 650 MG Q6P PRN 04/27 2230 AC 04/29 PO 1633 Acetaminophen/ 1 TAB Q6P PRN 04/27 223 AC Hydrocodone Bitart PO Apixaban 2.5 MG BID 04/28 1000 DC 04/29 PO 2032 Atorvastatin Calcium 10 MG 1700 04/28 1700 AC 04/29 PO 1633 Diphenhydramine HCl 25 MG Q6P PRN 04/27 2230 AC 04/29 PO 0016 Docusate Sodium 100 MG BID 04/28 1000 AC 01/16 PO 1032 Ferrous Sulfate 325 MG BID 04/28 1000 AC 04/30 PO 1032 Folic Acid 1 MG DAILY 04/28 1000 AC 04/30 PO 1032 Hydromorphone HCl 0.5 MG Q4P PRN 04/27 2230 AC IV Omeprazole 20 MG DAILY AC 04/28 0700 AC 04/30 PO 0638 Polyethylene Glycol 17 GM AT BEDTIME 04/28 2200 AC 04/29 PO 2033 Prochlorperazine 10 MG Q6P PRN 04/27 2230 AC IV Senna/Docusate Sodium 1 TAB AT BEDTIME 04/28 2200 AC 04/29 PO 2032 Sodium Chloride 1,000 ML Q13H 04/29 1130 AC 04/30 IV 0100 Sotalol HCl 120 MG BID 04/28 1000 AC 04/30 PO 1032 Last 24 Hrs of Lab/Lb Results Last 24 Hrs of Labs/Mics: Laboratory Tests 04/30/16 0635: Cortisol AM Sample Cancelled 04/30/16 0630: Anion Gap 7, Estimated GFR 57 L, BUN/Creatinine Ratio 23.3, Cortisol AM Sample 14.7 Assessment/Plan Assessment: Rajeev is an 89-year-old man with a medical history of coronary artery disease atrial fibrillation on anticoagulation heart failure with preserved ejection fraction hypertension pericardial effusion recent history of fall (negative CAT scan), recent admission to [facility] in March 2016 with acute congestive heart failure, gastric cancer status post chemotherapy and resection 2004, Parkinson's disease, osteoarthritis, subclinical hypothyroidism, acute kidney injury secondary to loop diuretics, BPH, anemia (? Iron deficiency) hard of hearing and legally blind now presents with 2 episodes of near syncope, increasing gait unsteadiness. Suspect he has been overdiuresed with furosemide leading to GABBY, and episodes of near syncope secondary to volume depletion. Laceration to head w/o IC bleed. Stable Afib with CHADSVASC 4. #Pre Syncope Likely due to overmedication versus iatrogenic. We'll continue to monitor the patient off Lasix, and off his statin. If these medications are wanted in the future we can add them as needed. Neurochecks q4 Continue patient on IV fluids normal saline running at 75 mL per hour. #Afib She was seen and examined by revenue stamp clerk recommends that it is imperative that the patient remains on sotalol for rate control. Owing to the fact that the patient cannot be anticoagulated due to fall risk he needs to be maintained in normal sinus rhythm. #Rule out Gideon's disease Cortisol a.m. samples within normal limits. #Gait unsteadiness PT/OT eval: Done on 04/28/2016 suggests that the patient may need home PT. 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 He will also need or continue to use a rolling walker. #DVT ppx Aspirin 81mg and ALPS Full code Problem List: 1. Pre-syncope 2. Unsteady gait 3. Facial laceration 4. Head injury 5. History of atrial fibrillation 6. Near syncope Pain Ratin Pain Location: NA Pain Goal: Remain pain free Pain Plan: Tylenol PRN Tomorrow's Labs & Rationales: BEP: Monitor electrolytes Magnesium LUTHER GHOSH MD 04/30/16 2094: Attending MD Review Statement Attending Statement Attending MD Statement: examined this patient, discuss w/resident/PA/LAWN SPECIALIST, agreed w/resident/PA/LAWN SPECIALIST, discussed with family, reviewed EMR data (avail), discussed with nursing, reviewed images, amended to note Attending Assessment/Plan: The patient was seen and discussed with house staff and daughter. Doing better. Appreciate cardiology input. Now off of Eliquis/Lisinopril and is on ASA. Follow BP.
[2016-04-30 08:15] VITALS: BP 130/58
--- NOTE | 2016-04-30 09:25 | PN- Cardiology ---
Subjective Subjective: * Patient demonstrates a poor memory but feels well. * NSR * creatinine improved to 1.2 * pleural effusions have improved Objective Vital Signs and I&Os Vital Signs Date Time Temp Pulse Resp B/P Pulse O2 O2 Flow FiO2 Ox Delivery Rate 04/30 814 97.8 62 18 130/58 97 Room Air 04/29 2259 97.6 67 18 110/60 98 Room Air 04/29 2029 64 148/58 04/29 1600 95 Room Air 04/29 1550 98.1 65 18 92/48 95 Room Air 04/29 1210 65 106/58 Intake & Output 04/30 1600 04/30 0800 04/30 0000 04/29 1600 04/29 0800 04/29 0000 Intake Total 575 1120 396 135 7869 Output Total 250 300 Balance 575 1120 670 -200 1190 Intake, IV 525 600 300 650 Intake, Oral 50 520 620 100 540 Number 0 Bowel Movements Output, Urine 250 300 Patient 156 lb Weight Physical Exam: General: WD/ WN male in NAD: alert and oriented x 3 Neck: no JVD, no carotid bruit Heart: RRR with 2/6 systolic murmur Lungs: clear bilaterally Ext: no edema Assessment/Plan Assessment/Plan * This patient had been on Lasix 40mg daily for symptoms of decompensated heart failure with both pleural and pericardial effusions. These findings appear to have resolved. I suspect that this patient was overdiureses resulting in both lightheadedness and renal insufficiency. We will leave this patient off both Lasix and Lisinopril for now. These medications may be added back later at a lower dose if deemed necessary. I suspect that this patient is also unsteady and would recommend a PT evaluation. * This patient carries a history of atrial fibrillation. In consideration of multiple falls I think he should stop Eliquis in favor of aspirin alone. Stopping his anticoagulation will make it even more important to maintain a NSR. Sotolol appears to be effective in this regard and also helps to control his BP. This drug should be continued. Continue telemetry? Yes
[2016-04-30 10:38] VITALS: BP 120/54
--- NOTE | 2016-04-30 11:19 | Patient Discharge Instructions ---
Discharge Instructions General Discharge Information You were seen/treated for: PreSyncope Dehydration A Fib Watch for these problems: Fever, nausea, vomiting, chills, weakness, increased generalized edema. Palpitations. Chest pain. Shortness of breath. If you have any adverse reactions from any of the medications prescribed please inform your primary care physician and you may be required to come back to the emergency department. Thank you for letting us be part of your care. Special Instructions: Please follow-up with your primary care physician on 05/04/2016. Please follow-up with the three dimensional art instructor on 05/08/2016. We have provided you with a referral. Diet Continue normal diet: Yes Activity Activity Self Limited: Yes (As Tolerated) Acute Coronary Syndrome Inclusion Criteria At DC or during hospital stay patient has or had the following: ACS DIAGNOSIS No Discharge Core Measures Meds if any: Prescribed or Continued at Discharge Meds if any: NOT Prescribed or Continued at Discharge Congestive Heart Failure Inclusion Criteria At DC or during hospital stay patient has or had the following: CHF DIAGNOSIS No Discharge Core Measures Meds if any: Prescribed or Continued at Discharge Meds if any: NOT Prescribed or Continued at Discharge Cerebrovascular accident Inclusion Criteria At DC or during hospital stay patient has or had the following: CVA/TIA Diagnosis No Discharge Core Measures Meds if any: Prescribed or Continued at Discharge Meds if any: NOT Prescribed or Continued at Discharge Venous thromboembolism Inclusion Criteria VTE Diagnosis No VTE Type NONE VTE Confirmed by (Test) NONE Discharge Core Measures - Per Current guidelines, there needs to be overlap - treatment for the first 5 days of Warfarin therapy. - If discharged on Warfarin prior to 5 days of - overlap therapy, the patient will need to be - assessed for post discharge needs including - *Post discharge parental anticoagulation - *Warfarin and/or parental anticoagulation education - *Follow up date to check INR post discharge At least 5 days overlap therapy as Inpatient No Meds if any: Prescribed or Continued at Discharge Note: Overlap Therapy is Warfarin and Anticoagulant Meds if any: NOT Prescribed or Continued at Discharge
[2016-04-30 15:18] VITALS: BP 122/60
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
[2016-04-30 23:03] VITALS: BP 162/80
[2016-05-01 08:23] VITALS: BP 158/69
--- NOTE | 2016-05-01 11:33 | PN- Housestaff ---
See Addendum Subjective Follow-up For: Presyncope GABBY AG Acidosis Tele-Events Since Last Visit: Sinus rhythm first-degree heart block, heart rate 64-80, no other events. Subjective: Seen and examine this morning. He was lying comfortably in bed in no acute distress. Remains afebrile, otherwise is within normal limits, no chest pain, no dizziness, he has been ambulating well with help of PT, has recommended home physical therapy. Review of Systems Constitutional: Denies: chills, fever. Cardiovascular: Denies: chest pain, palpitations. Respiratory: Denies: cough, short of breath, sputum production. Gastrointestinal: Denies: abdominal pain, constipation, diarrhea, nausea, vomiting. Genitourinary: Denies: dysuria, frequency. Objective Last 24 Hrs of Vital Signs/I&O Vital Signs Date Time Temp Pulse Resp B/P Pulse O2 O2 Flow FiO2 Ox Delivery Rate 05/01 0823 97.2 64 16 158/69 97 Room Air 04/30 2303 98.3 72 18 162/80 98 Room Air 04/30 1518 98.0 65 18 122/60 99 Room Air Intake & Output 05/01 1600 05/01 0800 05/01 0000 Intake Total 700 240 Output Total 500 400 Balance 200 -160 Intake, IV 600 Intake, Oral 100 240 Output, Urine 500 400 Physical Exam General Appearance: Alert, Oriented X3, Cooperative, No Acute Distress Cardiovascular: Regular Rate, Normal S1, Normal S2, No Murmurs Lungs: Clear to Auscultation, Normal Air Movement Abdomen: Normal Bowel Sounds, Soft, No Tenderness Extremities: No Clubbing, No Cyanosis, No Edema Current Medications: Current Medications Sig/Maximiliano Start time Last Medication Dose Route Stop Time Status Admin Acetaminophen 650 MG Q6P PRN 04/27 2230 AC 04/29 PO 1633 Acetaminophen/ 1 TAB Q6P PRN 04/27 2230 AC Hydrocodone Bitart PO Aspirin 81 MG DAILY 04/30 1405 AC 05/01 PO 0932 Atorvastatin Calcium 10 MG 1700 04/28 1700 AC 04/30 PO 1710 Diphenhydramine HCl 25 MG Q6P PRN 04/27 2230 AC 04/29 PO 0016 Docusate Sodium 100 MG BID 04/28 1000 AC 05/01 PO 0932 Ferrous Sulfate 325 MG BID 04/28 1000 AC 05/01 PO 0932 Folic Acid 1 MG DAILY 04/28 1000 AC 05/01 PO 0932 Hydromorphone HCl 0.5 MG Q4P PRN 04/27 2230 AC IV Lisinopril 5 MG DAILY 05/01 1014 AC PO Omeprazole 20 MG DAILY AC 04/28 0700 AC 05/01 PO 0602 Polyethylene Glycol 17 GM AT BEDTIME 04/28 2200 AC 04/29 PO 2033 Prochlorperazine 10 MG Q6P PRN 04/27 2230 AC IV Senna/Docusate Sodium 1 TAB AT BEDTIME 04/28 2200 AC 04/30 PO 2200 Sodium Chloride 1,000 ML Q13H 04/29 1130 AC 05/01 IV 0602 Sotalol HCl 120 MG BID 04/28 1000 AC 05/01 PO 0932 Last 24 Hrs of Lab/Lb Results Last 24 Hrs of Labs/Mics: Laboratory Tests 05/01/16 0602: Anion Gap 7, Estimated GFR > 60, BUN/Creatinine Ratio 21.8, Magnesium 2.0 Assessment/Plan Assessment: Rajeev is an 89-year-old man with a medical history of coronary artery disease atrial fibrillation on anticoagulation heart failure with preserved ejection fraction hypertension pericardial effusion recent history of fall (negative CAT scan), recent admission to [facility] in March 2016 with acute congestive heart failure, gastric cancer status post chemotherapy and resection 2004, Parkinson's disease, osteoarthritis, subclinical hypothyroidism, acute kidney injury secondary to loop diuretics, BPH, anemia (? Iron deficiency) hard of hearing and legally blind now presents with 2 episodes of near syncope, increasing gait unsteadiness. Suspect he has been overdiuresed with furosemide leading to GABBY, and episodes of near syncope secondary to volume depletion. Laceration to head w/o IC bleed. Stable Afib with CHADSVASC 4. #Pre Syncope Likely due to overmedication versus iatrogenic. We'll continue to monitor the patient off Lasix, and off his statin. If these medications are wanted in the future we can add them as needed. Neurochecks q4 IV fluids normal saline running at 75 mL per hour. #Afib She was seen and examined by mud mixer helper recommends that it is imperative that the patient remains on sotalol for rate control. Owing to the fact that the patient cannot be anticoagulated due to fall risk he needs to be maintained in normal sinus rhythm. #Rule out [place]'s disease Cortisol a.m. samples within normal limits. #Gait unsteadiness PT/OT eval: Done on 04/28/2016 suggests that the patient may need home PT. 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 He will also need or continue to use a rolling walker. #DVT ppx Aspirin 81mg and ALPS Full code Problem List: 1. GABBY (acute kidney injury) 2. Unsteady gait Pain Ratin Pain Location: None Pain Goal: Remain pain free Pain Plan: Mild pain pathway Tomorrow's Labs & Rationales: None patient to be discharged Discharge Plan Discharge Disposition: home Stable for Discharge? Yes Anticipated Discharge (Day): today If Discharged Today/In 24 Hrs: W-10/discharge paper done, DC summary done, CMR done
[2016-05-01 11:57] VITALS: BP 158/66
--- NOTE | 2016-05-01 13:57 | PN- Cardiology ---
Subjective Subjective: * No complaints. Patient has a very poor short term memory. * sinus rhythm * creatinine improved to 1.1 * BP is rising off Lisinopril and Lasix Objective Vital Signs and I&Os Vital Signs Date Time Temp Pulse Resp B/P Pulse O2 O2 Flow FiO2 Ox Delivery Rate 05/01 1157 63 158/66 05/01 0823 97.2 64 16 158/69 97 Room Air 04/30 2303 98.3 72 18 162/80 98 Room Air 04/30 1518 98.0 65 18 122/60 99 Room Air Intake & Output 05/01 1600 05/01 0800 05/01 0000 04/30 1600 04/30 0800 04/30 0000 Intake Total 379 430 3284 575 1120 Output Total 500 400 Balance 200 -160 9680 455 0244 Intake, IV 600 600 525 600 Intake, Oral 100 240 480 50 520 Output, Urine 500 400 Physical Exam: General: WD/ WN male in NAD: alert and oriented x 3 Neck: no JVD, no carotid bruit Heart: RRR with 2/6 systolic murmur Lungs: clear bilaterally Ext: no edema Assessment/Plan Assessment/Plan * This patient had been on Lasix 40mg daily for symptoms of decompensated heart failure with both pleural and pericardial effusions. These findings appear to have resolved. I suspect that this patient was overdiureses resulting in both lightheadedness and renal insufficiency. Since his BP is now rising and his creatinine has normalized I think it is reasonable to restart these medications but at a lower dose. Agree with beginning Lisinopril at 5mg daily. I would also restart Lasix at 20mg daily. * This patient carries a history of atrial fibrillation. In consideration of multiple falls I think he should stop Eliquis in favor of aspirin alone. Stopping his anticoagulation will make it even more important to maintain a NSR. Sotolol appears to be effective in this regard and also helps to control his BP. This drug should be continued. Continue telemetry? Yes
[2016-05-01] MEDS ORDERED: LASIX20 M1 PO (14:27)
[2016-05-01] MEDS ORDERED: LISINOPRIL5 M1 PO (14:39)
[2016-05-01] MEDS ORDERED: ASPIRIN81 M4 PO (14:40)
[2016-08-31] MEDS ORDERED: METOPROLOL TART25 M1 PO (10:52)
[2016-08-31] MEDS ORDERED: SYNTHROID25 MCG PO (11:18)
== END 2016-05-01 16:10 | disposition home health service (06) | DRG 683 ==
LOC: ENRESERVDT → ENRESERVTM → ERH 19:43 → ERHI 21:24 → 1NO 23:47 → ENPENDDIS 04-28 14:50 → 1NO 04-28 14:50
PROVIDERS: Physician Assistant Medical; ADMIT Internal Medicine
DX: N17.9 Acute kidney failure, unspecified (principal); E87.2 Acidosis; I11.0 Hypertensive heart disease with heart failure; I50.32 Chronic diastolic (congestive) heart failure; G20 Parkinson's disease; I95.1 Orthostatic hypotension; E78.5 Hyperlipidemia, unspecified; Z85.028 Personal history of other malignant neoplasm of stomach; M19.90 Unspecified osteoarthritis, unspecified site; H54.8 Legal blindness, as defined in USA; I25.10 Atherosclerotic heart disease of native coronary artery without angina pectoris; I48.0 Paroxysmal atrial fibrillation; Z79.01 Long term (current) use of anticoagulants
CPT/HCPCS: 1NSP; 84133; 84300; 36415; 82436; 82570; 87040; 87086; 93005; 93010; 97116-GO; 97116-GP; 97166-GO; 97530-GO; J3490; J7040